=== PATIENT | female | born 1950 | race Caucasian/White ===

== ENCOUNTER 2018-03-18 05:57 | Day surgery (SDC) | payer OTHER ==
[~2018-03-18 05:57] MED LIST: AMLODIPINE PO; ATORVASTATIN CA40 MG PO; LISINOPRIL40 MG PO; METFORMIN HCL500 MG PO; MYSOLINE50 MG PO; PLAVIX75 MG PO
== END 2018-03-18 14:10 | disposition home or self-care (01) ==
LOC: CIR.AMB 05:57
DX: D17.21 Benign lipomatous neoplasm of skin and subcutaneous tissue of right arm (principal)